=== PATIENT | male | born 1960 ===

== ENCOUNTER → 2020-11-02 | Outpatient (CLI) | payer BC ==
[~2020-11-02] MED LIST: AMBIEN 10MG10 MG PO; ASTELIN NASAL S34 ML NS; DESYREL 100MG100 MG PO; FLOVENT 110MCG7.9 GM IH; GLUCOTROL XL10 MG PO; GLYXAMBI1 TAB PO; HCTZ12.5TAB PO; KLONOPIN 1MG1 MG PO; LIPITOR 40MG TA40 MG PO; MICARDIS80 MG PO; SINGULAIR 110 MG/TAB PO; SYNTHROID0.2 MG/TAB PO
== END ==
LOC: COL.VAS 13:07
DX: I34.0 Nonrheumatic mitral (valve) insufficiency (principal)